=== PATIENT | female | born 2000 | race African-American/Black ===

== ENCOUNTER 2021-01-03 12:02 | Emergency (ER) | payer MEDICAID ==
[~2021-01-03] VITALS: Ht 165.1 cm; Wt 84.0 kg
[2021-01-03 12:14] VITALS: BP 156/66
[2021-01-03] MEDS ORDERED: HYDROXYZINE 25MG TABLET PO ONE (12:30)
[2021-01-03] MEDS ORDERED: HYDR-459 MT (12:41)
[2021-01-03] MEDS ORDERED: DOXY100C2 MT (12:41)
== END 2021-01-03 13:18 | disposition home or self-care (01) ==
LOC: ER 12:12
DX: L71.9 Rosacea, unspecified (principal); L70.9 Acne, unspecified
CPT/HCPCS: 99283